=== PATIENT | female | born 1990 | race Caucasian/White ===

== ENCOUNTER 2016-10-10 20:58 | Emergency (ER) | payer OTHER ==
[2016-10-11 01:59] LABS: BASOPHIL 0.2 % (0-2); EOSINOPHIL 2.7 % (0-5); HCT 42.6 % (37.0-47.0); HGB 14.7 g/dl (12.5-16.0); LYMPHOCYTE 21.7 % (15-48); MCH 31.5 pg (25.0-31.0); MCHC 34.5 g/dL (32.0-36.0); MCV 91.4 fL (78.0-100.0); MONOCYTE 6.9 % (0-12); MPV 10.3 fL (6.0-9.5); NEUTROPHIL 68.5 % (41-80); PLT 311 K/uL (150-400); RBC 4.66 M/uL (4.20-5.40); RDW 12.9 % (11.5-14.0); WBC 9.7 K/uL (4.0-10.5)
[2016-10-11 02:02] LABS: BILIRUBIN NEGATIVE (NEGATIVE); BLOOD 1+ Ery/uL (NEGATIVE); CLARITY CLEAR (CLEAR); COLOR YELLOW (YELLOW); GLUCOSE (U) NORMAL (NORMAL); KETONE (U) NEGATIVE (NEGATIVE); LEUKOCYTES NEGATIVE Leu/uL (NEGATIVE); NITRITE NEGATIVE (NEGATIVE); PROTEIN NEGATIVE (NEGATIVE); SPECIFIC GRAVITY 1.025 (1.001-1.030); UROBILINOGEN 0.2 mg/dL (0.2-1.0); pH 5.5 (5.0-9.0)
[2016-10-11 02:05] LABS: BACTERIA 1+; MUCOUS MODERATE
[2016-10-11 02:11] LABS: ALBUMIN 4.2 g/dL (3.5-5.0); BILIRUBIN - TOTAL 0.2 mg/dL (0.1-1.0); CREATININE 0.8 mg/dL (0.5-1.0); POTASSIUM 4.2 mmol/L (3.5-5.1); TOTAL PROTEIN 7.2 g/dL (6.4-8.3)
== END 2016-10-11 05:09 | disposition home or self-care (01) ==
LOC: FER 20:58
PROVIDERS: Emergency Medicine
DX: R10.84 Generalized abdominal pain (principal); R19.7 Diarrhea, unspecified; F43.10 Post-traumatic stress disorder, unspecified; Z83.79 Family history of other diseases of the digestive system; Z79.899 Other long term (current) drug therapy
CPT/HCPCS: 36415; 80053; 81001; 82150; 83690; 85025; J1885

== ENCOUNTER 2020-06-13 18:18 | Emergency (ER) | payer OTHER ==
[~2020-06-13 18:18] MED LIST: ADVAIR 100-501 EACH INH; BENTYL10 MG PO; CLARITIN10 M2 PO; DICLEGIS DR 101 EACH PO; DILAUDID2 MG PO; IRON325 M1 PO; MEDROL 4MG DOSEP4 MG PO; NEURONTIN100 MG PO; NORCO 5-325 TA1 EACH PO; ONDANSETRON4 MG/5 ML PO; PEPCID AC20 MG PO; PREDNISOLO15 MG/5 ML PO; PREDNISONE 20MG20 MG PO; PRENATAL FORMU1 EAC2 PO; PULMICORT0.5 MG/2 M NEB; SINGULAIR10 MG PO; SPIRIVA RESPIMAT4 G1 INH; TRAMADOL HCL50 MG PO; VENTOLIN (2.5 MG/0.5 NEB; VENTOLIN (2.5 MG/3 M INH; VOLTAREN **OUT50 MG PO; ZOFRAN4 MG PO; ZOFRAN4 MG SL; ZYRTEC10 M3 PO
[2020-06-13 20:18] LABS: BASOPHIL 0.3 % (0-2); EOSINOPHIL 0.8 % (0-5); HCT 42.2 % (37.0-47.0); HGB 14.3 g/dl (12.5-16.0); LYMPHOCYTE 19.6 % (15-48); MCH 32.1 pg (25.0-31.0); MCHC 33.9 g/dL (32.0-36.0); MCV 94.8 fL (78.0-100.0); MPV 11.3 fL (6.0-9.5); NEUTROPHIL 67.1 % (41-80); NRBC 0; PLT 208 K/uL (150-400); RBC 4.45 M/uL (4.20-5.40); RDW 11.9 % (11.5-14.0); WBC 6.2 K/uL (4.0-10.5)
[2020-06-13 20:39] LABS: BUN/CREAT RATIO (CALC) 6.3 RATIO; CREATININE 0.95 mg/dL (0.51-0.95); POTASSIUM 3.8 mmol/L (3.5-5.1)
[2020-06-13] MEDS ORDERED: PREDNISOLO15 MG/5 ML PO (21:36)
[2020-06-13] MEDS ORDERED: ONDANSETRON4 MG/5 ML PO (21:52)
== END 2020-06-13 22:04 | disposition home or self-care (01) ==
LOC: FER 18:18
PROVIDERS: Emergency Medicine Emergency Medical Services
DX: T78.1XXA Other adverse food reactions, not elsewhere classified, initial encounter (principal); J45.909 Unspecified asthma, uncomplicated; Z88.1 Allergy status to other antibiotic agents
CPT/HCPCS: 36415; 80048; 85025; 94640; 94664; J1100; J1170; J1200; J2405; J7030; J7120

== ENCOUNTER 2020-11-05 00:30 | Emergency (ER) | payer OTHER ==
[2020-11-05 03:04] LABS: BASOPHIL 0.4 % (0-2); EOSINOPHIL 2.1 % (0-5); HCT 40.2 % (37.0-47.0); HGB 13.7 g/dl (12.5-16.0); LYMPHOCYTE 29.4 % (15-48); MCH 32.3 pg (25.0-31.0); MCHC 34.1 g/dL (32.0-36.0); MCV 94.8 fL (78.0-100.0); MONOCYTE 6.7 % (0-12); MPV 10.8 fL (6.0-9.5); NRBC 0; PLT 274 K/uL (150-400); RBC 4.24 M/uL (4.20-5.40); WBC 9.4 K/uL (4.0-10.5)
[2020-11-05 03:23] LABS: ALBUMIN 3.7 g/dL (3.4-5.0); ALKALINE PHOSHATASE 73 U/L (46-116); ALT 18 U/L (14-59); AST 15 U/L (15-37); BILIRUBIN - TOTAL 0.5 mg/dL (0.2-1.0); BUN 6 mg/dL (7-18); BUN/CREAT RATIO (CALC) 8.2 RATIO; CHLORIDE 107 mmol/L (98-107); CO2 (BICARBONATE) 29 mmol/L (21-32); CPK 78 U/L (26-192); CREATININE 0.73 mg/dL (0.51-0.95); GLOBULIN (CALCULATION) 3.7 g/dL; GLUCOSE 84 mg/dL (74-106); MAGNESIUM 2.2 mg/dL (1.8-2.4); PHOSPHORUS 3.7 mg/dL (2.6-4.7); POTASSIUM 4.3 mmol/L (3.5-5.1); TOTAL PROTEIN 7.4 g/dL (6.4-8.2)
[2020-11-05 03:24] LABS: C-REACTIVE PROTEIN < 0.20 mg/dL (<=0.90); LACTIC ACID 0.9 mmol/L (0.4-1.9)
[2020-11-05] MEDS ORDERED: NEURONTIN100 MG PO ×2 (06:38→06:40)
[2020-11-05] MEDS ORDERED: NORCO 5-325 TA1 EACH PO (06:38)
[2020-11-05] MEDS ORDERED: DILAUDID2 MG PO (06:40)
== END 2020-11-05 06:55 | disposition home or self-care (01) ==
LOC: FER 00:30
PROVIDERS: Emergency Medicine Emergency Medical Services
DX: L95.9 Vasculitis limited to the skin, unspecified (principal); J45.909 Unspecified asthma, uncomplicated; Z88.0 Allergy status to penicillin; Z88.1 Allergy status to other antibiotic agents; Z88.2 Allergy status to sulfonamides; Z88.8 Allergy status to other drugs, medicaments and biological substances
CPT/HCPCS: 36415; 36600; 80053; 82550; 82803; 83605; 83735; 84100; 84484; 85025; 86140; 87040; 93005; J1170; J1200; J2405; J2930; J3360; J7030

== ENCOUNTER 2020-12-06 20:55 | Emergency (ER) | payer OTHER | END 2020-12-07 00:26 | disposition home or self-care (01) | LOC: FER 20:55 | DX: S60.221A Contusion of right hand, initial encounter (principal); S90.01XA Contusion of right ankle, initial encounter; T14.8XXA Other injury of unspecified body region, initial encounter; Z91.018 Allergy to other foods; V49.40XA Driver injured in collision with unspecified motor vehicles in traffic accident, initial encounter; Y92.410 Unspecified street and highway as the place of occurrence of the external cause | CPT/HCPCS: 71101; 73130; 73610 ==

== ENCOUNTER 2021-03-04 11:06 | Emergency (ER) | payer OTHER ==
[2021-03-04 12:40] LABS: BILIRUBIN NEGATIVE (NEGATIVE); BLOOD NEGATIVE Ery/uL (NEGATIVE); CLARITY CLEAR (CLEAR); COLOR YELLOW (YELLOW); GLUCOSE (U) NORMAL (NORMAL); LEUKOCYTES NEGATIVE Leu/uL (NEGATIVE); NITRITE NEGATIVE (NEGATIVE); PROTEIN NEGATIVE (NEGATIVE); SPECIFIC GRAVITY >=1.030 (1.001-1.030); UROBILINOGEN 0.2 mg/dL (0.2-1.0)
[2021-03-04 12:40] LABS: BASOPHIL 0.4 % (0-2); EOSINOPHIL 0.6 % (0-5); HCT 41.1 % (37.0-47.0); HGB 13.9 g/dl (12.5-16.0); LYMPHOCYTE 31.7 % (15-48); MCHC 33.8 g/dL (32.0-36.0); MCV 94.5 fL (78.0-100.0); MONOCYTE 6.9 % (0-12); MPV 10.8 fL (6.0-9.5); NEUTROPHIL 60.2 % (41-80); NRBC 0; PLT 291 K/uL (150-400); RBC 4.35 M/uL (4.20-5.40)
[2021-03-04 13:16] LABS: ALBUMIN 3.6 g/dL (3.4-5.0); BILIRUBIN - TOTAL 0.4 mg/dL (0.2-1.0); BUN/CREAT RATIO (CALC) 11.1 RATIO; CREATININE 0.81 mg/dL (0.51-0.95); GLOBULIN (CALCULATION) 3.2 g/dL; TOTAL PROTEIN 6.8 g/dL (6.4-8.2)
[2021-03-04 13:25] LABS: POTASSIUM 4.3 mmol/L (3.5-5.1)
== END 2021-03-04 14:31 | disposition home or self-care (01) ==
LOC: FER 11:06
PROVIDERS: Emergency Medicine
DX: R07.89 Other chest pain (principal); J45.909 Unspecified asthma, uncomplicated; Z87.891 Personal history of nicotine dependence; Z91.018 Allergy to other foods
CPT/HCPCS: 36415; 71045; 80053; 81003; 84484; 85025; 85379; 93005

== ENCOUNTER 2021-06-07 03:28 | Emergency (ER) | payer OTHER ==
[2021-06-07 04:40] LABS: BASOPHIL 0.3 % (0-2); EOSINOPHIL 0.8 % (0-5); HCT 37.9 % (37.0-47.0); LYMPHOCYTE 30.2 % (15-48); MCH 31.8 pg (25.0-31.0); MCHC 34.3 g/dL (32.0-36.0); MCV 92.7 fL (78.0-100.0); MONOCYTE 6.3 % (0-12); MPV 10.4 fL (6.0-9.5); NEUTROPHIL 62.2 % (41-80); NRBC 0; PLT 279 K/uL (150-400); RBC 4.09 M/uL (4.20-5.40); RDW 11.6 % (11.5-14.0); WBC 9.5 K/uL (4.0-10.5)
[2021-06-07 05:06] LABS: BUN 5 mg/dL (7-18); BUN/CREAT RATIO (CALC) 7.6 RATIO; CHLORIDE 104 mmol/L (98-107); CO2 (BICARBONATE) 29 mmol/L (21-32); CREATININE 0.66 mg/dL (0.51-0.95); GLUCOSE 73 mg/dL (74-106); POTASSIUM 3.2 mmol/L (3.5-5.1)
[2021-06-07] MEDS ORDERED: PREDNISOLO15 MG/5 ML PO (05:37)
== END 2021-06-07 06:49 | disposition home or self-care (01) ==
LOC: FER 03:28
PROVIDERS: Internal Medicine
DX: U07.1 COVID-19 (principal); J45.909 Unspecified asthma, uncomplicated; Z79.899 Other long term (current) drug therapy; Z88.1 Allergy status to other antibiotic agents; Z88.8 Allergy status to other drugs, medicaments and biological substances
CPT/HCPCS: 36415; 80048; 84145; 84484; 85025; 93005; J1100

== ENCOUNTER 2021-12-12 05:17 | Emergency (ER) | payer OTHER ==
[~2021-12-12 05:17] MED LIST changes: +CYCLOBENZAPRINE10 MG PO
[2021-12-12 05:50] LABS: HCT 40.7 % (37.0-47.0); HGB 13.6 g/dl (12.5-16.0); MCHC 33.4 g/dL (32.0-36.0); MCV 95.8 fL (78.0-100.0); MPV 10.9 fL (6.0-9.5); RBC 4.25 M/uL (4.20-5.40); RDW 11.9 % (11.5-14.0); WBC 10.8 K/uL (4.0-10.5)
[2021-12-12 06:02] LABS: BUN 9 mg/dL (7-18); CHLORIDE 106 mmol/L (98-107); CO2 (BICARBONATE) 29 mmol/L (21-32); CREATININE 0.82 mg/dL (0.51-0.95); GLUCOSE 87 mg/dL (74-106); POTASSIUM 3.6 mmol/L (3.5-5.1)
[2021-12-12 06:23] LABS: CORONAVIRUS 2019 SARS-COV-2 NEGATIVE (NEGATIVE); INFLUENZA A NAA NEGATIVE (NEGATIVE)
[2021-12-12] MEDS ORDERED: PREDNISOLO15 MG/5 ML PO (06:44)
== END 2021-12-12 06:59 | disposition home or self-care (01) ==
LOC: FER 05:17
PROVIDERS: Emergency Medicine
DX: T78.40XA Allergy, unspecified, initial encounter (principal); Z88.1 Allergy status to other antibiotic agents; Z88.8 Allergy status to other drugs, medicaments and biological substances; Z20.822 Contact with and (suspected) exposure to COVID-19; Z28.310 Unvaccinated for COVID-19
CPT/HCPCS: 36415; 80048; 84484; 93005; 94640; 94664; J1200; J2405; J2930; U0002